=== PATIENT | male | born 1955 | race Caucasian/White ===

== ENCOUNTER 2016-05-04 05:17 | Emergency (ER) | payer MEDICARE, OTHER ==
--- NOTE | ~2016-05-04 | CT71 ---
[facility] A Service of [facility] RADIOLOGY TEXT RESULTS PATIENT: LEAH MAN LOCATION: [facility] : 59 UNIT #: [id number] AGE: [address]: Kushal Castanon MD SEX: M ORDER DR: [id number] [facility] [place] [facility] [address] [place], [place] [address] [id number] MR#: [id number] Acc #: [id number] NAME: LEAH MAN : 1955 SEX: M STUDY DATE/TIME: 05/04/2016 6:36 UNIT: JESSICA ROOM: STUDY DESCRIPTION: CT Head Wo Contrast Attending Physician: Vitaliy Minor M.D. Ordering Physician: Kushal aCstanon M.D. Primary Care Physician: April Aguilar A.P.R.N. MEDICAL IMAGING REPORT This report is preliminary unless electronic signature is present EXAM Head CT, 05/04. INDICATION Headache behind the right eye with nasal congestion and pressure for 2 weeks. Pain is 6/10. TECHNIQUE Axial images were obtained from the base to the vertex without contrast. This CT exam was performed with one or more of the following radiation dose reduction techniques: automatic exposure control, adjustment of mA and/or kV according to patient size, and iterative reconstruction. COMPARISON STUDIES No comparison. FINDINGS There is generalized atrophy. Ventricular size and configuration are normal. No acute infarct or hemorrhage is seen. There are no masses. There are no skull fractures. There is an old right lamina papyracea fracture. 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 There is chronic mucosal thickening in bilateral ethmoid air cells and in the left frontal sinus. There is some fluid in the right frontal sinus suggesting acute right frontal sinusitis. IMPRESSION 1. No acute findings in the brain. 2. Chronic ethmoid and left frontal sinus mucosal thickening. There is acute right frontal sinusitis. 3. Old right lamina papyracea fracture. [facility] A Service of [facility] RADIOLOGY TEXT RESULTS PATIENT: LEAH MAN LOCATION: [facility] : 59 UNIT #: [id number] AGE: [address]: Kushal Castanon MD SEX: M ORDER DR: Dictated by... Lukas Landers Jr., M.D. THIS IS AN ELECTRONICALLY VERIFIED REPORT Lukas Landers Jr., M.D. at 05/04/2016 3:49 PM VINH/tobi TD: 05/04/2016 09:13 JOB #: [id number] MEDICAL IMAGING REPORT COPY
[~2016-05-04 05:17] MED LIST: ALPRAZOLAM; ALPRAZOLAM PO; COUMADIN PO; FOLIC ACID PO; HYDROCODON-ACE1 EAC7 PO; PLETAL100 MG PO; PRILOSEC20 MG PO; THIAMINE HCL100 MG PO; ZOLOFT100 MG PO
[2016-05-04 06:20] LABS: INR 1.2; PROTHROMBIN TIME (PATIENT) 12.3 SECONDS (9.6-11.5)
== END 2016-05-04 07:06 | disposition home or self-care (01) ==
LOC: CED 05:17
PROVIDERS: Emergency Medicine
DX: R51 Headache (principal); K21.9 Gastro-esophageal reflux disease without esophagitis; F32.9 Major depressive disorder, single episode, unspecified
CPT/HCPCS: 36415; 70450; 85610; 96374; 96375; 99284; J1100; J1200; J1885; J2765